=== PATIENT | male | born 1985 | race Caucasian/White ===

== ENCOUNTER 2016-10-09 11:36 | Day surgery (SDC) | payer BC ==
--- NOTE | 2016-10-09 11:54 | PDOC ---
Gen Adult / Medical Screen HPI - General Chief Complaint: General Medical Stated Complaint: FOOD STUCK IN ESOPAGUS Date Seen by Provider: 10/09/16 Time Seen by Provider: 11:48 Source: POSITIVE: Patient - History of Present Illness Initial Comments: Mr. Hahn is a 31-year-old miriam coming in today feeling that he has a lump of food stuck in his esophagus. He was eating last night about 10:00 PM. He thinks that it was a chunk of bread that got stuck there. Everything that he has drunk since then has come up. He has not tried solid food. He states that if he is able to relax he is able to let his saliva go down, but he's been spitting up a lot of that as well. He does not x-ray feel nauseated. He feels like the food got stuck right in the middle of his lower chest. 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 He is on [id number] acid reflux medications for this. He denies any other complaints, with no fever dizziness lightheadedness shortness of breath. - Patient Home Medications Home Medications: Home Medications Omeprazole Magnesium [Prilosec Otc] 20 mg PO DAILY 10/09/16 - Patient Allergies Allergies/Adverse Reactions: Allergies Allergy/AdvReac Type Severity Reaction Status Date / Time No Known Allergies Allergy Unverified 10/09/16 11:44 Past Medical History - heen HEENT History: Denies History Cardiovascular History: Denies History Respiratory History: Denies History Gastrointestinal History: GERD Genitourinary History: Denies History Endocrine History: Denies History Musculoskeletal History: Denies History Neurological History: Denies History Blood Disorders: Denies History Psychiatric History: Denies History Type / Date of Surgery: upper endoscopy Past Medical History Reviewed: Reviewed - No Changes ROS - Limitations ROS Limitations: No Limitations Constitution: REPORTS: Denies Symptoms Cardiovascular: REPORTS: Denies Cardiac Symptoms Respiratory: REPORTS: Denies Resp Symptoms Neurological: REPORTS: Denies Neuro Symptoms Endocrine: REPORTS: Denies Symptoms Musculoskeletal: REPORTS: Denies MS Symptoms Genitourinary: REPORTS: Denies Symptoms Eyes: REPORTS: Denies Symptoms ENT: REPORTS: Denies Symptoms Skin: REPORTS: Denies Skin Symptoms Gen Adult/Medical Screen Exam - General Appearance General Appearance: POSITIVE: Alert, Cooperative, No Acute Distress - HEENT HEENT: POSITIVE: Head Inspection Nml, Eyes Inspection Nml, Ears Inspection Nml, Nose Inspection Nml - Pupils Pupil Size: 3 mm: Bilateral - Neck Neck: POSITIVE: Normal Inspection - Respiratory Respiratory: POSITIVE: No Respiratory Distress, Breath Sounds Normal, Chest Non- Tender - Cardiovascular Cardiovascular: POSITIVE: Regular Rate & Rhythm Peripheral Pulses: Radial (R): 2+, Radial (L): 2+ - Abdomen Abdomen: Soft: (All Quadrants), Normal Bowel Sounds: (All Quadrants), Denies Tenderness: (All Quadrants) - Neurological / Psychological Mental Status: POSITIVE: Mood Normal, Affect Normal Orientation: POSITIVE: Oriented x 3 - Skin Skin: POSITIVE: Normal Color, Warm, No Rash - Extremities Extremity: Non-Tender: (All Extremities), Normal ROM: (All Extremities), Normal Inspection: (All Extremities) Gen Adlt/Medical Scrn Progress - Patient's Progress MDM / ED Course: Carol Hahn is a 31-year-old man coming to us today with a potential food impaction in his esophagus. We gave him a dose of glucagon which did not really do anything. I called Dr. Márquez who accepted the patient for admission for same day surgery for upper endoscopy. Patient left the emergency department in stable condition - Consult Consult (If Yes, Name of Consulting MD & Time Called): Yes (Dr. Márquez, from general surgery, concerning emergent endoscopy, at 11:55) Consulting MD will see pt:: POSITIVE: In ED Patient Care Time - Estimated PCT Patient Care Time (In Minutes): 15 Vital Signs - Recent Vital Signs Vital Signs: Vital Signs (Last 8 hours) Temp Pulse Resp BP Pulse Ox 10/09/16 11:43 97.2 F 98 16 139/97 92 - VS Reviewed Vital Signs Reviewed: Yes Discharge Clinical Impression: Foreign body in esophagus Qualifiers: Encounter type: initial encounter Qualifier Code: (T18.108A) Unspecified foreign body in esophagus causing other injury, initial encounter Discharge Disposition: Transferred to OR Condition: Stable Date Decision to Admit to Inpatient: 10/09/16 Time Decision to Admit to Inpatient: 12:30
[2016-10-09] MEDS ORDERED: GLUCAGON EMERGENCY KIT 1 MG KIT IM ONE (11:55)
[2016-10-09 11:57] VITALS: RESP 16
[2016-10-09] MEDS ORDERED: Glucagon Inj Vial 1 MG/ML VIAL ONE (12:14)
[2016-10-09] MEDS ORDERED: NORMAL SALINE 10 ML SYRINGE FLUSH IVP PRN (12:39)
[2016-10-09] MEDS ORDERED: Lactated Ringers 1,000 ML PRIMARY IV SCH (12:45)
--- NOTE | 2016-10-09 12:47 | CONSULT ---
Consult Note - Consult Consult Date: 10/09/16 Reason for Consult: PreOp Consulation : General Surgery Requesting Physician: Dr. Golden Primary Care Provider: NONE NONE - History of Present Illness History of Present Illness: Patient is a 31-year-old male with a foreign body lodged in his esophagus. He reports about 10:00 o'clock last night he ate some bread. It did not go down. It lodged in the substernal region. He hasn't been able to swallow, even his saliva, since. He has tried to drink but it won't go down. He has not been able to regurgitate it. He presented to the emergency room for the same. Reports about 10 years ago he had an upper endoscopy with dilation. He has had intermittent dysphagia but usually the bolus will go down. He is on over-the- counter Prilosec on an as needed basis. Patient got some glucagon. It feels like the bolus is still stuck. He will be taken to the procedure core for an upper endoscopy with biopsy and possible dilation. Review of Systems - Gastrointestinal Gastrointestinal / Abdominal: REPORTS: Heartburn, See HPI. DENIES: Negative System Review, Nausea, Vomiting, Diarrhea, Constipation, Abdominal Pain, Bloody Stool, Poor Appetite, Regurgitation, Bloating, Lactose Intolerance, Melena, Bright Red Blood Per Rectum, Other Past Medical History Medical History: Denies significant medical problems. Surgical History: Remote EGD with dilation. Tobacco Use: Never Smoker Substance Use Type: None Medication / Allergies Home Medications: Home Medications Medication Instructions Recorded Confirmed Type Omeprazole Magnesium [Prilosec Otc] 20 mg PO DAILY 10/09/16 10/09/16 History Allergies/Adverse Reactions: Allergies Allergy/AdvReac Type Severity Reaction Status Date / Time No Known Allergies Allergy Unverified 10/09/16 11:44 Exam - Vitals Vital Signs: Vital Signs Temperature 97.2 F Temperature Source Temporal Artery Scan Pulse Rate [Pulse Oximeter 98 Right] Respiratory Rate 16 Blood Pressure [Right Arm] 139/97 Pulse Ox 92 Oxygen Delivery Method Room Air Height 6 ft Weight 104.326 kg - General General Appearance: POSITIVE: Cooperative, Mild Distress - Respiratory Respiratory Exam: POSITIVE: Clear to Auscultation - Bilaterally, Breathing Non Labored - Cardiovascular Cardiovascular Exam: POSITIVE: RRR, No Murmur - GI/Abdominal GI/Abdominal Exam: POSITIVE: Normal Bowel Sounds, Non Tender, Non Distended, Soft Assessment and Plan - Patient Problems (1) Foreign body in esophagus Current Visit: Yes Status: Acute Priority: High Diagnosis Date: 10/08/16 Comment: Proceed with esophagogastroduodenoscopy with biopsy and possible dilation.The procedure has been discussed with the patient in complete yet simple terms including benefits, risks, and alternatives. All questions have been answered. Informed consent has been obtained. (2) Chronic GERD Current Visit: Yes Status: Acute Comment: Chronic. On [id number] Prilosec. Will change to pantoprazole 40 mg by mouth daily.
[2016-10-09] MEDS ORDERED: Glucagon Inj Vial 1 MG/ML VIAL IM ONE (12:53)
[2016-10-09] MEDS ORDERED: fentaNYL Inj 100 MCG/2 ML VIAL ONE (12:54)
[2016-10-09] MEDS ORDERED: LIDOCAINE HCL/PF 2% (20 MG/ML) - 5 ML SYRINGE ONE (12:54)
[2016-10-09] MEDS ORDERED: MIDAZOLAM 5 MG/1 ML ONE (12:55)
--- NOTE | 2016-10-09 13:21 | GEN.OPNOTE ---
EGD Operative Note Surgery Date: 10/09/16 Preoperative Diagnosis: Foreign body lodged in the esophagus. Postoperative Diagnosis: Foreign body lodged in the esophagus, sausage. Esophagitis. Duodenitis. Procedure: Esophagogastroduodenoscopy with biopsy and removal of foreign body. Surgeon: Al Márquez MD Anesthesia Provider: Angel Sheldon CRNA Anesthesia Type: MAC Indications: Foreign body lodged in the esophagus. Findings: Esophagus: [Normal] GE Junction : [Food bolus. No significant stricture. Esophagitis.] Fundus : [Normal] Body : [Normal] Prepyloric : [Mild erythema] Small Intestine : [Findings consistent with duodenitis] A lubricated flexible upper endoscope was inserted and passed into the distal esophagus. A meat bolus was removed with a large grasping forceps. This took 2 passes for complete removal. This appeared to be sausage. The scope was then advanced into the distal esophagus and stomach into the duodenum. The duodenum and duodenal bulb showed signs of duodenitis. Biopsies were taken. Hemostasis was assured. There was some inflammatory changes in the antrum. Biopsies were taken. Hemostasis was assured. The scope was retroflexed. The remainder of the gastric mucosa was unremarkable. The scope was withdrawn into the distal esophagus. In the distal esophagus there was no evidence of a significant stricture. There were obvious inflammatory changes. Multiple biopsies were taken. Hemostasis was assured. The scope was then withdrawn through the remainder of a normal-appearing esophagus and brought through the hypopharynx under suction completing the procedure. The patient tolerated the procedure well without complication. He was taken to outpatient surgery in stable condition. Follow-up will be in my office on an as-needed basis. We will call the biopsy results when available. I will switch the patient to pantoprazole 40 mg by mouth daily to be taken for minimum of 3 months and then when necessary as needed after that. Estimated Blood Loss (mL): 2 Pathology: Specimens to pathology. Complications: None.
[2016-10-09 14:01] VITALS: TEMP 98
[2016-10-09] MEDS ORDERED: Lactated Ringers 1,000 ML PRIMARY IV ONE (16:12)
== END 2016-10-09 13:48 | disposition home or self-care (01) ==
LOC: ER 11:36 → SDSC 12:54
PROVIDERS: ATTEND Surgery
DX: T18.128A Food in esophagus causing other injury, initial encounter (principal); K20.9 Esophagitis, unspecified; K29.80 Duodenitis without bleeding
CPT/HCPCS: 43239; 43247; 99284 ×2; J1610; J2704; J3010; J2250; J7120